=== PATIENT | female | born 1965 | race Caucasian/White ===

== ENCOUNTER 2016-08-23 16:50 | Emergency (ER) | payer OTHER ==
[2016-08-23 17:06] VITALS: BP 114/79; PULSE 95; RESP 18; TEMP 98.8; O2SAT 99
--- NOTE | 2016-08-23 17:13 | C.PDOC ---
History Of Present Illness 51 y/o female c/o redness, itching and rash to neck and chest. Started yesterday . No known exacerbation cause. No respiratory symptoms. Time Seen by Provider: 08/23/16 17:01 Chief Complaint (Nursing): Allergic Reaction History Per: Patient History/Exam Limitations: no limitations Onset/Duration Of Symptoms: Days, Gradual Current Symptoms Are (Timing): Still Present Possible Cause: Unknown Associated Symptoms: Skin Rash, Itching. denies: Dyspnea, Trouble Swallowing, Dizziness, Chest Pain Pain Scale Rating Of: 0 Past Medical History Vital Signs: Last Vital Signs Temp 98.8 F 08/23/16 16:58 Pulse 95 H 08/23/16 16:58 Resp 18 08/23/16 17:19 BP 114/79 08/23/16 16:58 Pulse Ox 99 08/23/16 17:14 - Medical History PMH: HTN, Rheumatoid Arthritis Denies: Chronic Kidney Disease Family History: States: Unknown Family Hx - Social History Hx Tobacco Use: No Hx Alcohol Use: No Hx Substance Use: No - Immunization History Hx Tetanus Toxoid Vaccination: No Hx Influenza Vaccination: No Hx Pneumococcal Vaccination: No Review Of Systems Constitutional: Negative for: Fever, Chills Cardiovascular: Negative for: Chest Pain, Palpitations Respiratory: Negative for: Cough, Shortness of Breath Gastrointestinal: Negative for: Nausea, Vomiting, Abdominal Pain Neurological: Negative for: Weakness, Numbness Physical Exam - Physical Exam Appears: Non-toxic, No Acute Distress Skin: Normal Color Head: Atraumatic Nose: Normal Oral Mucosa: Moist Tongue: Normal Appearing Lips: Normal Appearing Throat: Normal Chest: Other (uticaria rash to chest and neck) Cardiovascular: Rhythm Regular Respiratory: Normal Breath Sounds Back: Normal Inspection ED Course And Treatment O2 Sat by Pulse Oximetry: 99 Disposition - Disposition Referrals: [facility] [Outside] Disposition: HOME/ ROUTINE Disposition Time: 17:05 Condition: STABLE Prescriptions: DiphenhydrAMINE [Benadryl] 25 mg PO BID #10 cap Prednisone [Deltasone] 60 mg PO DAILY #9 tablet Instructions: Contact Dermatitis (ED) Forms: Gen Discharge Inst Israeli - POA Present On Arrival: None - Clinical Impression Clinical Impression: Contact dermatitis
== END 2016-08-23 17:20 | disposition home or self-care (01) ==
LOC: C.ER 16:50
DX: L25.9 Unspecified contact dermatitis, unspecified cause (principal)